=== PATIENT | female | born 1955 | race Caucasian/White ===

== ENCOUNTER 2016-11-01 14:30 | Inpatient (IN) | payer OTHER ==
[2016-11-05] MEDS ORDERED: ceFAZolin 2 GM/DEXTROSE 100 ML IV ONE (07:00)
[2016-11-05] MEDS ORDERED: LR 1,000 ML IV ONE (08:46)
[2016-11-05] MEDS ORDERED: BUPIVACAINE/EPI 0.25% 30 ML SDV ONE (08:53)
[2016-11-05] MEDS ORDERED: THROMBIN (RECOMBINANT) 5,000 UNIT VIAL TP ONE (08:54)
[2016-11-05] MEDS ORDERED: BACITRACIN 50,000 UNITS/10 ML SYR IRR ONE (08:54)
[2016-11-05] MEDS ORDERED: ROCURONIUM 50 MG/5 ML VIAL ONE (09:02)
[2016-11-05] MEDS ORDERED: PROPOFOL/EMULSION 500 MG/50 ML BOTTLE IV ONE (09:03)
[2016-11-05] MEDS ORDERED: PROPOFOL 200 MG/20 ML VIAL ONE (09:03)
[2016-11-05] MEDS ORDERED: REMIFENTANIL HCL 1 MG VIAL ONE (09:03)
[2016-11-05] MEDS ORDERED: fentaNYL 100 MCG/2 ML INJ ONE ×2 (09:03→12:48)
[2016-11-05] MEDS ORDERED: SUGAMMADEX SODIUM 200 MG/2 ML VIAL IVP ONE (09:09)
[2016-11-05] MEDS ORDERED: TEMAZEPAM 15 MG CAP PO PRN (09:37)
[2016-11-05] MEDS ORDERED: ACETAMINOPHEN 325 MG TAB PO PRN (09:37)
[2016-11-05] MEDS ORDERED: diphenhydrAMINE 25 MG CAP PO PRN (09:37)
[2016-11-05] MEDS ORDERED: DIAZEPAM 5 MG TAB PO PRN (09:37)
[2016-11-05] MEDS ORDERED: BISACODYL 10 MG SUPP PR PRN (09:37)
[2016-11-05] MEDS ORDERED: ONDANSETRON DISINTEGRATING 4 MG TAB PO PRN (09:37)
[2016-11-05] MEDS ORDERED: MAGNESIUM HYDROXIDE 30 ML UDCUP PO PRN (09:37)
[2016-11-05] MEDS ORDERED: NALOXONE HCL 0.4 MG/ML INJ IVP PRN (09:37)
[2016-11-05] MEDS ORDERED: DIAZEPAM 10 MG/2 ML SYR IVP PRN (09:37)
[2016-11-05] MEDS ORDERED: LACTULOSE 20 GM/30 ML UDCUP PO PRN (09:37)
[2016-11-05] MEDS ORDERED: ONDANSETRON 4 MG/2 ML VIAL IVP PRN (09:37)
[2016-11-05] MEDS ORDERED: morphINE PCA 30 MG/30 ML PCA IV PRN (09:37)
[2016-11-05] MEDS ORDERED: POLYETHYLENE GLYCOL 3350 17 GM PKT PO PRN (09:37)
[2016-11-05] MEDS ORDERED: PREGABALIN 75 MG CAP ONE (09:44)
[2016-11-05] MEDS ORDERED: PREGABALIN 150 MG CAP PO ONE (10:00)
[2016-11-05] MEDS ORDERED: MIDAZOLAM 2 MG/2 ML VIAL ONE (10:03)
[2016-11-05] MEDS ORDERED: DEXAMETHASONE 4 MG/ML VIAL ONE ×3 (10:49→10:50)
[2016-11-05] MEDS ORDERED: ONDANSETRON 4 MG/2 ML VIAL ONE (11:54)
--- NOTE | 2016-11-05 12:46 | SOAPPROG ---
SOAP Progress Note Assessment/Plan: Post Op Visit: S: Awake and alert. NAD. Pt with expected neck pain O: AFVSS/PERRLA/EOMI no droop CN 2-12 grossly intact +lt touch 5/5 BUE/BLE = CDI neck soft and supple A/P: 60 yo female s/p ACDF C5/6 -orders in place -call with any questions or concerns -pt seen by Dr Jo as well 11/05/16 12:44 ICD10 Worksheet Patient Problems: Problems Problem Status Diagnosed Arthrodesis status Acute Cervical stenosis of spine Acute Chest pain, minimal coronary artery risk Acute - ICD10 Problem Qualifiers (1) Arthrodesis status (2) Cervical stenosis of spine
[2016-11-05] MEDS ORDERED: DIAZEPAM 10 MG/2 ML SYR ONE (12:53)
[2016-11-05] MEDS ORDERED: HYDROmorphONE/DILAUDID 1 MG/ML SYR ONE (13:43)
--- NOTE | 2016-11-05 13:49 | GOP ---
[f rep st] OPERATIVE REPORT DATE OF OPERATION: 11/05/2016 SURGEON: Zeke Jo MD NEUROSURGEON: Zeke Jo MD VETERINARY RECEPTIONIST: Holden Amezcua PA-C PREOPERATIVE DIAGNOSIS: Cervical spondylosis with cervical stenosis and cervical radiculopathy, C5-6 . POSTOPERATIVE DIAGNOSIS: Cervical spondylosis with cervical stenosis and cervical radiculopathy, C5- 6. PROCEDURE PERFORMED: Anterior cervical diskectomy, decompression, and arthrodesis at C5-6 (51219), a nterior cervical instrumentation at C5-6 (37445), placement of biomechanical intervertebral device wi thout anchors at C5-6 (99352), microscope, same incision bone graft harvest, and fluoroscopy. FINDINGS: ESTIMATED BLOOD LOSS: 75 cc. INDICATIONS: The patient is a 60-year-old who appears to have some type of systemic inflammatory pro cess and was seen by multiple physicians for this. It was suggested that she go see a crawler tractor operator as well, but she presented with cervical radicular symptoms. MRI of the cervical spine demonstrated spondylosis at C5-6, with evidence of bilateral foraminal stenosis at 5-6. She had bilateral radicu lar symptoms, and we felt this was contributing to her discomfort and radiating symptoms down the arm s. We suggested a single-level anterior cervical diskectomy and fusion. She understood that it may fail to produce relief, but there was a chance that it would help with her discomfort. She also unde rstood there was the possibility of adjacent segment disease, pseudoarthrosis, nerve injury spinal fl uid leak, esophageal injury, carotid injury, recurrent laryngeal nerve injury, major vascular injury, and dysphasia. She appreciated these risks, and she wanted to proceed despite them. DESCRIPTION OF PROCEDURE: The patient was taken to the operating room and placed in the supine posit ion. General anesthesia was begun. A midline shoulder roll was placed. Her arms were tucked at the sides. Her neck was sterilely prepped and draped in the usual fashion. We made a transverse incisi on in the rostral neck crease on the left-hand side. The subcutaneous tissue was dissected using Bov ie cautery down through the platysma. We then used a combination of sharp and blunt dissection, work ing our way medial to the sternocleidomastoid and lateral to the strap muscles, down to the preverteb ral space. We shot a localizing x-ray. We dissected the longus colli muscles off the spine at C5-6, removed the ventral osteophytes at C5-6, and placed distraction pins there. We introduced the opera ting microscope and under the scope, we removed the C5-6 disk and the cartilaginous endplates. We th en drilled and harvested a large amount of subchondral bone for autologous grafting purposes, and the re was a large bony shelf of material protruding into the spinal canal posteriorly. We opened the po sterior longitudinal ligament, and decompressed the thecal sac and the neural foramen bilaterally. S he had large epidural veins over both C6 nerve roots, and we got great decompression, but there was s ignificant bleeding in the foramen itself. This was easily controlled with a little piece of Gelfoam . We shot an x-ray confirming removal of the posterior bony osteophytes, packed a 7 x 16 x 14 mm cag e with a large amount of bony autograft, and inserted it at C5-6. A nice fit was obtained. An x-ray was taken. The distraction pins were removed. We then placed an anterior cervical plate at C5-6. It was a 21 mm Medtronic plate and placed 15 mm screws. All screws were in excellent position. We t hen locked all of the hardware according to the company's specifications, achieved meticulous hemosta sis, and then placed some 0.25% Marcaine with epinephrine in the wound. We then closed the platysma with interrupted Vicryl sutures and the skin with interrupted Vicryl sutures. We placed Steri-Strips on the skin. This concluded the procedure. She was reversed from anesthesia, extubated, and transf erred to the recovery room in stable condition. COMPLICATIONS: None. INSTRUMENTATION USED: Medtronic ELITE plate, 21 mm, with an anatomic PTC cage, 7 x 14 x 16 mm. /[id number]/MODL
--- NOTE | 2016-11-05 15:27 | DX ---
Fluoroscopy Provided for Cervical Spine Surgery Indication: Neck pain. Fluoroscopy time: 11.5 seconds. Dose: 0.81 mGy. Technique: Single crosstable lateral view. Findings: Anterior fusion hardware is present at C5-C6. Patient is intubated. Impression: Fluoroscopy provided for intraoperative guidance.
[2016-11-05] MEDS: NS W/ 20 KCl/L 1,000 ML IV SCH (16:38)
[2016-11-05] MEDS: ceFAZolin 2 GM in D5W 100 ML IV SCH ×2 (16:38→21:23)
[2016-11-05] MEDS: oxyCODONE IR 5 MG TAB PO PRN (21:02)
[2016-11-05] MEDS: SENNOSIDES/DOCUSATE SODIUM TAB PO SCH (21:02)
[2016-11-05] MEDS: FAMOTIDINE 20 MG/NACL 50 ML IV SCH (21:03)
[2016-11-05] MEDS: METHOCARBAMOL 750 MG TAB PO PRN (21:03)
[2016-11-06] MEDS: oxyCODONE IR 5 MG TAB PO PRN ×3 (00:04→14:10)
[2016-11-06 07:28] VITALS: PULSE 65
[2016-11-06] MEDS: METHOCARBAMOL 750 MG TAB PO PRN ×2 (07:55→14:11)
[2016-11-06] MEDS: SENNOSIDES/DOCUSATE SODIUM TAB PO SCH (07:55)
[2016-11-06] MEDS: FAMOTIDINE 20 MG/NACL 50 ML IV SCH (07:56)
[2016-11-06] MEDS: NS W/ 20 KCl/L 1,000 ML IV SCH (08:18)
[2016-11-06] MEDS ORDERED: lamoTRIgine 100 MG TAB PO SCH (09:00)
--- NOTE | 2016-11-06 11:11 | NEUSURGPN ---
Date of Surgery: 11/05/16 Post Op Day: 1 Assessment/Plan: POD #1 s/p C5/6 ACDF right forearm pain improved Plan: DC Home after cervical xrays Subjective: out of bed in chair pain controlled, preop symptoms improved Objective: PEREZ, sens +LT, swallowing fine, ambulatory Dressing : Saturated, dressing changed. Urinary Catheter in Place: No Neurosurgery Physical Exam - Vitals, I&O, Labs I and O 11/05/16 11/06/16 11/07/16 05:59 05:59 05:59 Intake Total 4155 Output Total 4030 Balance 125 Intake: Oral (ml) 2100 IV Intake (ml) 1500 IV Infused (ml) 555 ceFAZolin 2 GM/DEXTROSE 100 100 ml @ 200 mls/hr IV ONCALL ONE Rx#:[id number] Famotidine 20 mg/NaCl 50 50 ml @ 200 mls/hr IV Q12HRS NEREYDA Rx#:[id number] NS W/ 20 KCl/L 1,000 ml @ 300 75 mls/hr IV CONT NEREYDA Rx #:[id number] ceFAZolin 2 gm In D5w 100 105 ml @ 200 mls/hr IV Q8 NEREYDA Rx#:[id number] Output: Urine (ml) 4000 Toilet 4000 Estimated Blood Loss (ml) 30 Other: Number of Voids Toilet 1 Vital Signs Temp Pulse Resp BP Pulse Ox 36.7 C 65 18 116/70 99 11/06/16 07:27 11/06/16 07:27 11/06/16 07:27 11/06/16 07:27 11/06/16 07:27 ICD10 Worksheet Patient Problems: Problems Problem Status Diagnosed Arthrodesis status Acute Cervical stenosis of spine Acute Chest pain, minimal coronary artery risk Acute
[2016-11-06 11:26] VITALS: BP 112/53; RESP 16; TEMP 98.4; O2SAT 95
--- NOTE | 2016-11-06 14:37 | DX ---
Cervical Spine, 2 Views Indication: Postoperative cervical fusion evaluation. Findings: Anterior fusion from C5-C6 demonstrates normal alignment. The prevertebral soft tissues are within normal limits given the new postoperative status. The rest of the cervical spine is normal in alignment. There is mild degenerative change at the C3-C4 junction. Lung apices are clear. Impression: Postoperative normal alignment post fusion at C5-C6.
[2016-11-08] MEDS ORDERED: ENOXAPARIN 40 MG/0.4 ML SYR SC SCH (09:00)
== END 2016-11-06 16:43 | disposition home or self-care (01) | DRG 473 ==
LOC: F3N 11-05 08:35
PROVIDERS: ADMIT Neurological Surgery; ATTEND Neurological Surgery
PROC: 0RB30ZZ Excision of Cervical Vertebral Disc, Open Approach (ICD-10-PCS; principal; 2016-11-05 10:00)
PROC: 01N10ZZ Release Cervical Nerve, Open Approach (ICD-10-PCS; principal; 2016-11-05 10:00)
PROC: 0RG00A0 Fusion of Occipital-cervical Joint with Interbody Fusion Device, Anterior Approach, Anterior Column, Open Approach (ICD-10-PCS; principal; 2016-11-05 10:00)
DX: M47.22 Other spondylosis with radiculopathy, cervical region (principal); M48.02 Spinal stenosis, cervical region
CPT/HCPCS: 92610-GN; 97161-GP; 97165-GO; 97535-GO; C1713; J0690; J1100; J1170; J2250; J2405; J2704; J3010

== ENCOUNTER → 2016-11-08 | Outpatient (CLI) | payer OTHER ==
--- NOTE | 2016-11-08 16:50 | DX ---
Cervical spine,2 views 11/08/2016 History: Follow-up cervical spine surgery. Comparison examination: November 06, 2016 Findings: Surgical features of diskectomy and interbody fusion at C5-C6 appear unchanged, with anatom ic alignment. Moderate intervertebral disk height loss at C4-C5 and mild disk height loss at C6-C7 are again noted compatible with degenerative disk disease. Impression: Stable cervical spine radiographs post diskectomy and fusion at C5-C6.
== END ==
LOC: FIMAGING 14:49
DX: Z09 Encounter for follow-up examination after completed treatment for conditions other than malignant neoplasm (principal); Z98.1 Arthrodesis status; M50.90 Cervical disc disorder, unspecified, unspecified cervical region

== ENCOUNTER → 2016-12-31 | Outpatient (CLI) | payer OTHER | LOC: FIMAGING 13:41 | PROVIDERS: ATTEND Physician Assistant | DX: Z98.1 Arthrodesis status (principal) ==

== ENCOUNTER → 2017-02-15 | Outpatient (CLI) | payer OTHER | LOC: CIMAGING 15:06 | PROVIDERS: ATTEND Internal Medicine Endocrinology, Diabetes & Metabolism | DX: E04.1 Nontoxic single thyroid nodule (principal) | CPT/HCPCS: 76536-PO ==

== ENCOUNTER → 2017-02-28 | Outpatient (CLI) | payer OTHER | LOC: BMCIMAGING 10:38 | PROVIDERS: ATTEND Internal Medicine Rheumatology | DX: Z13.820 Encounter for screening for osteoporosis (principal); M85.80 Other specified disorders of bone density and structure, unspecified site ==

== ENCOUNTER → 2017-03-23 | Outpatient (CLI) | payer OTHER | LOC: FIMAGING 16:36 | PROVIDERS: ATTEND Internal Medicine Rheumatology | DX: M85.841 Other specified disorders of bone density and structure, right hand (principal); M85.842 Other specified disorders of bone density and structure, left hand ==

== ENCOUNTER → 2017-04-28 | Outpatient (CLI) | payer OTHER | LOC: FIMAGING 17:38 | PROVIDERS: ATTEND Nurse Practitioner | DX: Z09 Encounter for follow-up examination after completed treatment for conditions other than malignant neoplasm (principal); Z98.1 Arthrodesis status ==

== ENCOUNTER → 2017-05-18 | Outpatient (CLI) | payer OTHER | LOC: FIMAGING 13:38 | PROVIDERS: ATTEND Obstetrics & Gynecology | DX: Z12.31 Encounter for screening mammogram for malignant neoplasm of breast (principal) | CPT/HCPCS: G0202 ==

== ENCOUNTER → 2017-08-16 | Outpatient (CLI) | payer OTHER | LOC: FIMAGING 11:01 → FLAB 11:01 → EDSTATUS 11:02 | PROVIDERS: ATTEND Podiatrist | DX: M21.70 Unequal limb length (acquired), unspecified site (principal) ==

== ENCOUNTER → 2017-10-13 | Outpatient (CLI) | payer OTHER | LOC: FIMAGING 15:45 | PROVIDERS: ATTEND Neurological Surgery | DX: M50.321 Other cervical disc degeneration at C4-C5 level (principal) ==

== ENCOUNTER → 2017-10-28 | Outpatient (CLI) | payer OTHER | LOC: FIMAGING 13:38 | PROVIDERS: ATTEND Neurological Surgery | DX: Z98.1 Arthrodesis status (principal) ==

== ENCOUNTER → 2018-02-04 | Outpatient (CLI) | payer OTHER | LOC: FIMAGING 14:13 | PROVIDERS: ATTEND Internal Medicine Rheumatology | DX: M05.79 Rheumatoid arthritis with rheumatoid factor of multiple sites without organ or systems involvement (principal) ==

== ENCOUNTER → 2018-04-21 | Outpatient (CLI) | payer OTHER | LOC: FIMAGING 13:08 | PROVIDERS: ATTEND Obstetrics & Gynecology | DX: I99.9 Unspecified disorder of circulatory system (principal); D25.9 Leiomyoma of uterus, unspecified; Z80.41 Family history of malignant neoplasm of ovary ==

== ENCOUNTER → 2018-05-19 | Outpatient (CLI) | payer OTHER | LOC: FIMAGING 12:39 | PROVIDERS: ATTEND Internal Medicine | DX: Z12.31 Encounter for screening mammogram for malignant neoplasm of breast (principal) ==

== ENCOUNTER 2018-09-20 11:50 | Emergency (ER) | payer OTHER ==
--- NOTE | 2018-09-20 12:32 | EDPHY ---
H & P Stated Complaint: c/o intermittent yeung behind R eye since 12.1, since having vision variations Time Seen by Provider: 09/20/18 12:31 - Medical/Surgical History Hx Asthma: No Hx Chronic Respiratory Disease: No Hx Diabetes: No Hx Cardiac Disease: No Hx Renal Disease: No Hx Cirrhosis: No Hx Alcoholism: No Hx HIV/AIDS: No Hx Splenectomy or Spleen Trauma: No Other PMH: PMH: "mild variant of mitral click", RA, depression,. PSH: shoulder surgery 2005, varicose vein (right leg 01/13, left leg 01/20), uterine polyp removed - Social History Smoking Status: Never smoked Constitutional: Initial Vital Signs Temperature (C) 36.7 C 09/20/18 12:05 Heart Rate 91 09/20/18 12:05 Respiratory Rate 18 09/20/18 12:05 Blood Pressure 115/85 H 09/20/18 12:05 O2 Sat (%) 100 09/20/18 12:05 O2 Delivery Mode Room Air Allergies/Adverse Reactions: Latex, Natural Rubber Allergy (Intermediate, Verified 09/20/18 12:16) Hives POWDERED LATEX GLOVES Allergy (Intermediate, Uncoded 02/26/15 17:11) Hives Home Medications: Medication Instructions Recorded Cholecalciferol (Vitamin D3) 2,000 unit PO DAILY 02/01/16 [Vitamin D3] lamoTRIgine [LamICTAL 100 MG (*)] 200 mg PO DAILY 02/01/16 Methocarbamol [Robaxin 750 mg (*)] 750 mg PO QID PRN #60 tab 11/06/16 Polyethylene Glycol 3350 [Miralax 17 gm PO DAILY PRN #0 pkt 11/06/16 17 gm (*)] oxyCODONE IR [Oxycodone Ir (*)] 5 mg PO Q3HRS PRN #90 tab 11/06/16 Medical Decision Making - Diagnostics Imaging Results: Imaging Impressions Brain MRI 09/20/18 12:48 Impression: 1. A few nonspecific hyperintense T2/FLAIR signal abnormalities in the white matter of bilateral cerebral hemispheres. Differential diagnosis includes mild microvascular ischemic gliosis, migraine-related sequela, atypical demyelinating disease, or postinfectious/post inflammatory sequela. 2. No acute infarct, acute hemorrhage, hydrocephalus, or enhancing lesions. Findings and recommendations discussed with Emergency Department physician, Brady Hernández MD at 14:45 hours, 09/20/2018. Final report concurs with initial preliminary interpretation. Imaging: Discussed imaging studies w/ inbound call center representative Radiologist, I viewed and interpreted images myself ED Course/Re-evaluation: CHIEF COMPLAINT: Right-sided headache, vision problems HISTORY OF PRESENT ILLNESS: The patient is a 62 y/o female with a history of rheumatoid arthritis complaining of a right-sided headache surrounding her eye for several weeks worsening over the last week and now associated with right eye vision changes. She developed a sinus infection at the end of July and was initially treated conservatively with OTC medications and developed significant drainage from the right side of her nose. Over the holiday she flew to visit family and this seemed to aggravate her symptoms. She went to urgent care and was treated for presumed sinus infection and conjunctivitis with a course of Augmentin. Symptoms worsened over the next two days and she returned to urgent care and was switched to Ocuflox drops. She had normal vision at this point and denies weakness, paresthesias, or fever at any point. She returned home and developed decrease in vision in her right eye. She saw her load dispatcher , PCP, and financial operations clerk locally and intrinsic eye issues were ruled out and she was advised to stop the antibiotics. She currently has constant pain from the right side of her forehead and check around the right side of her head and down her neck. She is having difficulty seeing normally out of her right eye. REVIEW OF SYSTEMS: A comprehensive 10 system review of systems is otherwise negative aside from elements mentioned in the history of present illness and medical decision making. PHYSICAL EXAM: HR, BP, O2 Sat, RR. Temp noted General Appearance: Alert, well hydrated, appropriate, and non-toxic appearing. Head: Atraumatic without scalp tenderness or obvious injury Eyes: Pupils equal, round, reactive to light and accommodation, EOMI, no trauma , no injection. Ears: Clear bilaterally, no perforation, normal landmarks Nose: Atraumatic, no rhinorrhea, clear. Throat: Mucus membranes moist. Neck: Supple, nontender, no lymphadenopathy. Respiratory: No retractions, no distress, no wheezes, and no accessory muscle use. Lungs are clear to auscultation bilaterally. Cardiovascular: Regular rate and rhythm, no murmurs, rubs, or gallops.Good capillary refill all extremities. Gastrointestinal: Abdomen is soft, nontender, non-distended, no masses, no rebound, no guarding, no peritoneal signs. Musculoskeletal: Normal active ROM of all extremities, atraumatic. Neurological: Alert, appropriate, and interactive. The patient has non-focal cranial nerves, motor, sensory, and cerebellar exam. Skin: No rashes, good turgor, no nodules on palpation. Past medical history: "mild variant of mitral click", RA - Enbrel (currently off this in preparation for hysterectomy in ), depression. Past surgical history: shoulder surgery 2005, varicose vein (right leg 01/13, left leg 01/20), uterine polyp removed, neck fusion Family history: noncontributory Social history: at bedside. Lives in [place]. Retired. DIAGNOSTICS/PROCEDURES/CRITICAL CARE TIME: Brain MRI: negative DIFFERENTIAL DIAGNOSIS: The differential diagnosis for the patient's vision issues included but was not limited to peripheral causes, central causes including CVA, TIA, electrolyte abnormalities and dehydration, cardiogenic causes, atypical causes like migraine syndrome. MEDICAL DECISION MAKING: This is a 62 y/o female with rheumatoid arthritis who presents with a nearly 1- month history of right-sided facial pain and headache who more recently developed difficulty seeing out of her right eye. She's undergone several outpatient examinations and intrinsic eye issues have been ruled out by ophthalmology and optometry. Apart from decreased vision in right eye, neuro exam is nonfocal. Plan for IV, ISTAT, and brain MRI for evaluation of intracranial causes. Brain MRI is negative. Reassessed patient and discussed findings. Recommended follow up with neurologist in the next week. She is comfortable with this plan. Return precautions discussed. She is comfortable with this plan. - Data Points Laboratory Results: 09/20/18 13:03 POC Hgb 16.0 gm/dL gm/dL (12.6-16.3) POC Hct 47 % % (38-47) POC Sodium 142 mEq/L mEq/L (135-145) POC Potassium 3.6 mEq/L mEq/L (3.3-5.0) POC Chloride 101 mEq/L mEq/L (97-110) POC BUN 10 mg/dL mg/dL (7-23) POC Creatinine 0.7 mg/dL mg/dL (0.6-1.0) POC Glucose 94 mg/dL mg/dL (70-100) Point of Care Test Results: Chemistry 09/20/18 13:03 POC Sodium 142 mEq/L mEq/L (135-145) POC Potassium 3.6 mEq/L mEq/L (3.3-5.0) POC Chloride 101 mEq/L mEq/L (97-110) POC BUN 10 mg/dL mg/dL (7-23) POC Creatinine 0.7 mg/dL mg/dL (0.6-1.0) POC Glucose 94 mg/dL mg/dL (70-100) ISTAT H&H 09/20/18 13:03 POC Hgb 16.0 gm/dL gm/dL (12.6-16.3) POC Hct 47 % % (38-47) Departure - Departure Disposition: Home, Routine, Self-Care Clinical Impression: Vision changes Headache Qualifiers: Headache type: unspecified Headache chronicity pattern: unspecified pattern Intractability: not intractable Qualified Code(s): R51 - Headache Condition: Good Instructions: General Headache (ED), Blurred Vision (ED) Additional Instructions: Follow up with neurologist in the next week. I recommend calling today to schedule this appointment. Return to the ED for any worsening of condition. Referrals: Latasha Velasco MD [Primary Care Provider] - As per Instructions Zak Crabtree DO [Doctor of Osteopathy] - As per Instructions Report Scribed for: Brady Hernández Report Scribed by: Blanca Sauer Date of Report: 09/20/18 Time of Report: 12:50
[2018-09-20] MEDS ORDERED: GADOBUTROL 10 ML VIAL IVP ONE (13:51)
[2018-09-20 15:48] VITALS: BP 150/86
== END 2018-09-20 15:48 | disposition home or self-care (01) ==
DX: H53.8 Other visual disturbances (principal); R51 Headache; M06.9 Rheumatoid arthritis, unspecified
CPT/HCPCS: 82435-PO; 82565-PO; 82947-PO; 84132-PO; 84295-PO; 84520-PO; 85014-PO; A9585

== ENCOUNTER 2018-10-11 07:15 | Observation (INO) | payer OTHER ==
[2018-10-11] MEDS ORDERED: LIDOCAINE 2% 5 ML SDV ONE (08:36)
[2018-10-11] MEDS ORDERED: PROPOFOL 200 MG/20 ML VIAL ONE (08:36)
[2018-10-11] MEDS ORDERED: SUGAMMADEX SODIUM 200 MG/2 ML VIAL IVP ONE (08:36)
[2018-10-11] MEDS ORDERED: ONDANSETRON 4 MG/2 ML VIAL ONE (08:36)
[2018-10-11] MEDS ORDERED: fentaNYL 250 MCG/5 ML INJ ONE (08:36)
[2018-10-11] MEDS ORDERED: DEXAMETHASONE 4 MG/ML VIAL ONE (08:36)
[2018-10-11] MEDS ORDERED: ROCURONIUM 100 MG/10 ML VIAL ONE (08:36)
[2018-10-11] MEDS ORDERED: GABAPENTIN 300 MG CAP PO ONE (09:35)
[2018-10-11] MEDS ORDERED: ACETAMINOPHEN 500 MG TAB PO ONE (09:35)
[2018-10-11] MEDS ORDERED: LIDOCAINE 1% 2 ML INJ ID PRN (09:35)
[2018-10-11] MEDS ORDERED: LR 1,000 ML IV ONE (09:35)
[2018-10-11] MEDS ORDERED: ceFAZolin 2 GM/DEXTROSE 100 ML IV ONE (09:35)
[2018-10-11] MEDS ORDERED: PHENAZOPYRIDINE HCL 200 MG TAB PO ONE (09:35)
[2018-10-11] MEDS ORDERED: LR 500 ML IV PRN (09:37)
[2018-10-11] MEDS ORDERED: oxyCODONE IR 5 MG TAB PO PRN (09:37)
[2018-10-11] MEDS ORDERED: ONDANSETRON 4 MG/2 ML VIAL IVP PRN (09:37)
[2018-10-11] MEDS ORDERED: PROMETHAZINE HCL 25 MG/ML INJ IVP PRN ×2 (09:37→14:03)
[2018-10-11] MEDS ORDERED: fentaNYL 100 MCG/2 ML INJ IVP PRN (09:37)
[2018-10-11] MEDS ORDERED: PHENYLEPHRINE HCL 100 MCG/ML SYR IVP PRN (09:37)
[2018-10-11] MEDS ORDERED: METOCLOPRAMIDE 10 MG/2 ML VIAL IVP PRN (09:37)
[2018-10-11] MEDS ORDERED: MEPERIDINE 25 MG/0.5 ML AMP IVP PRN (09:37)
[2018-10-11] MEDS ORDERED: NALOXONE HCL 0.4 MG/ML INJ IVP PRN (09:37)
[2018-10-11] MEDS ORDERED: MIDAZOLAM 2 MG/2 ML VIAL IVP ONE (09:37)
[2018-10-11] MEDS ORDERED: BUPIVACAINE/EPI 0.5% 30 ML SDV ONE ×2 (10:04→11:09)
--- NOTE | 2018-10-11 10:24 | PDHPUP ---
History & Physical Update H&P update statement: This history and physical update is based on an assessment of the patient which was completed after admission or registration (within 24 hours), but prior to the surgery/procedure. H&P update: H&P reviewed & patient examined, no change in patient's condition since H&P completed
--- NOTE | 2018-10-11 10:40 | PDANEPAE ---
ANE Past Medical History - Cardiovascular History Hx Hypertension: No Hx Arrhythmias: No Hx Chest Pain: No Hx Coronary Artery / Peripheral Vascular Disease: No Hx CHF / Valvular Disease: No Hx Palpitations: No Cardiovascular History Comment: mild variant of mitral click- cardiac work up - Pulmonary History Hx COPD: No Hx Asthma/Reactive Airway Disease: No Hx Recent Upper Respiratory Infection: Yes Hx Oxygen in Use at Home: No Hx Sleep Apnea: No Sleep Apnea Screening Result - Last Documented: Negative Pulmonary History Comment: SINUS INFECTION 08/2018. ENVIRONMENTAL ALLERGIES - Neurologic History Hx Cerebrovascular Accident: No Hx Seizures: No Hx Dementia: No Neurologic History Comment: lower legs are achy. nerve pain - Endocrine History Hx Diabetes: No Endocrine History Comment: THYROID goiter - Renal History Hx Renal Disorders: Yes Renal History Comment: INCONT - Liver History Hx Hepatic Disorders: No - Neurological & Psychiatric Hx Hx Neurological and Psychiatric Disorders: Yes Neurological / Psychiatric History Comment: depression. anxiety - Cancer History Hx Cancer: No Cancer History Comment: cervical dysplagia - Congenital Disorder History Hx Congenital Disorders: No - GI History Hx Gastrointestinal Disorders: Yes Gastrointestinal History Comment: INTERMITTENT REFLUX USES ROLAIDS - Other Health History Other Health History: UTERINE PROLAPSE. LABRAL TEAR HIP RECENT PLATELET. INJECTION 09/07/18. DDD/RECENT LUMBAR KEITH. wears glasses and contacts - Chronic Pain History Chronic Pain: Yes (neck, back, chest, bilateral hands) - Surgical History Prior Surgeries: ACDF 10/2016. hysterectomy, d&c 02/2015. cervix cone bx '85. l shoulder '06 ANE Review of Systems Review of Systems: - Exercise capacity METS (RN): 4 METS ANE Patient History - Allergies Allergies/Adverse Reactions: Latex, Natural Rubber Allergy (Intermediate, Verified 09/20/18 12:16) Hives POWDERED LATEX GLOVES Allergy (Intermediate, Uncoded 02/26/15 17:11) Hives - Home Medications Home Medications: Cholecalciferol (Vitamin D3) [Vitamin D3] 2,000 unit PO DAILY 02/01/16 [Last Taken 10/04/18] lamoTRIgine [LamICTAL 100 MG (*)] 200 mg PO DAILY 02/01/16 [Last Taken 10/11/18] Acetaminophen [Tylenol ES 500 mg (*)] 500 mg PO Q6H PRN 09/22/18 [Last Taken 11/14] Etanercept [Enbrel] 50 mg SQ FR 09/22/18 [Last Taken 09/01/18] Fexofenadine HCl [Lloy Allergy] 180 mg PO DAILY PRN 09/22/18 [Last Taken 11/14] Folic Acid [Folic Acid 1 MG (*)] 2 mg PO DAILY 09/22/18 [Last Taken 10/11/18] Herbals/Supplements -Info Only 1 ea PO DAILY 09/22/18 [Last Taken 10/04/18] Methotrexate Sodium [Rheumatrex] 15 mg PO WE 09/22/18 [Last Taken 10/04/18] - NPO status NPO Since - Liquids (Date): 10/10/18 NPO Since - Liquids (Time): 23:45 NPO Since - Solids (Date): 10/10/18 NPO Since - Solids (Time): 23:45 - Smoking Hx Smoking Status: Never smoked - Family Anes Hx Family Hx Anesthesia Complications: none ANE Labs/Vital Signs - Vital Signs Blood Pressure: 134/74 Heart Rate: 67 Respiratory Rate: 13 O2 Sat (%): 96 Height: 170.18 cm Weight: 73.482 kg ANE Physical Exam - Airway Neck exam: FROM Mallampati Score: Class 1 Mouth exam: normal dental/mouth exam - Pulmonary Pulmonary: no respiratory distress, no rales or rhonchi, clear to auscultation - Cardiovascular Cardiovascular: regular rate and rhythym - ASA Status ASA Status: II ANE Anesthesia Plan Anesthesia Plan: general endotracheal anesthesia
[2018-10-11] MEDS ORDERED: KETOROLAC 30 MG/1 ML SDV ONE (11:03)
[2018-10-11] MEDS ORDERED: ROCURONIUM 50 MG/5 ML VIAL ONE ×2 (12:40→12:44)
--- NOTE | 2018-10-11 12:54 | POSTANESTH ---
Post Anesthetic Evaluation Cardiovascular Status: Normal, Stable Respiratory Status: Normal, Stable Level of Consciousness/Mental Status: Can Participate in Eval Pain Control: Adequate, Prn Tx Ordered Nausea/Vomiting Control: Adequate, Prn Tx Ordered Complications Possibly Related to Anesthesia: None Noted
[2018-10-11] MEDS ORDERED: ePHEDrine SULFATE 25 MG/5 ML SYR ONE (13:35)
[2018-10-11] MEDS ORDERED: ACETAMINOPHEN 500 MG TAB PO PRN (14:02)
[2018-10-11] MEDS ORDERED: POLYETHYLENE GLYCOL 3350 17 GM PKT PO PRN (14:02)
[2018-10-11] MEDS ORDERED: ONDANSETRON DISINTEGRATING 4 MG TAB PO PRN (14:04)
--- NOTE | 2018-10-11 14:09 | POSTOPPROG ---
Post Op Note Date of Operation: 10/11/18 Surgeon: Sekou Jo Plastic Maker: Ursula Martinez Anesthesia: GET(General Endotracheal) Pre-op Diagnosis: Uterovaginal prolapse, stress incontinence Post-op Diagnosis: same Procedure: Robotic hyst/BSO, sacrocolpopexy, TOT sling, cysto Findings: No bladder or urethral injury Inf/Abcess present in the surg proc area at time of surgery?: No EBL: Minimal Complications: None
[2018-10-11] MEDS ORDERED: METHOTREXATE 2.5 MG TAB PO SCH (14:15)
[2018-10-11] MEDS ORDERED: LR 1,000 ML IV SCH (14:30)
[2018-10-11] MEDS ORDERED: DIAZEPAM 5 MG/ML 1 ML SYR ONE ×2 (14:30→15:54)
[2018-10-11] MEDS ORDERED: DIAZEPAM 5 MG/ML 1 ML SYR IVP PRN (14:38)
[2018-10-11] MEDS ORDERED: HYDROmorphONE/DILAUDID 2 MG/ML INJ ONE ×2 (15:07→15:54)
[2018-10-11] MEDS: HYDROmorphONE/DILAUDID 1 MG/ML INJ IVP PRN ×4 (15:09→22:42)
[2018-10-11] MEDS: HYDROmorphONE/DILAUDID 2 MG/ML INJ IVP PRN ×5 (15:15→15:50)
[2018-10-11] MEDS ORDERED: HYDROmorphONE/DILAUDID 1 MG/ML INJ IVP PRN (15:27)
[2018-10-11] MEDS ORDERED: HYDROmorphONE/DILAUDID 1 MG/ML INJ IVP ONE (16:00)
[2018-10-11] MEDS ORDERED: DIAZEPAM 5 MG/ML 1 ML SYR IVP ONE (16:00)
[2018-10-11] MEDS: GABAPENTIN 300 MG CAP PO SCH ×2 (17:51→23:26)
[2018-10-11] MEDS: ONDANSETRON 4 MG/2 ML VIAL IVP PRN ×2 (18:14→22:42)
--- NOTE | 2018-10-11 18:35 | GOP ---
DATE OF OPERATION: 10/11/2018 SURGEON: Sekou Jo MD SIEBEL ADMINISTRATOR: Ursula Martinez CFA. ANESTHESIA: General. PREOPERATIVE DIAGNOSIS: 1. Cystocele. 2. Uterine prolapse. 3. Rectocele. 4. Stress urinary incontinence. 5. History of cervical dysplasia. POSTOPERATIVE DIAGNOSIS: 1. Cystocele. 2. Uterine prolapse. 3. Rectocele. 4. Stress urinary incontinence. 5. History of cervical dysplasia. PROCEDURE PERFORMED: 1. Robotic-assisted total laparoscopic hysterectomy, bilateral salpingo-oophorectomy. 2. Sacral colpopexy with mesh. 3. Repair of cystocele and rectocele. 4. Transobturator sling. 5. Cystoscopy. FINDINGS: SPECIMENS: Uterus, bilateral tubes, and ovaries. ESTIMATED BLOOD LOSS: Scant. DESCRIPTION OF PROCEDURE: The patient was taken to the operating room where she was identified. Gen eral anesthesia was administered and found to be adequate. She was placed in the lithotomy position and prepared and draped in normal sterile fashion. A Willett catheter was placed in her bladder. A VC are uterine manipulator was placed into the endometrial cavity and sutured to the cervix. A 1 cm infraumbilical incision was made with a scalpel. The Veress needle with the CO2 gas line was advanced into the peritoneal cavity. The abdomen was then insufflated with carbon dioxide gas. The 12 mm trocar followed by the laparoscope were then inserted. The upper abdomen was unremarkable. Tw o lateral ports were placed on either side under direct visualization. She then was placed in T[place] len[place] position and the da Sindi robot docked on the left side. The instruments were then brought i nto the abdominal cavity under direct visualization. The uterus, tubes and ovaries were grossly unre markable. The left round ligament was divided. The anterior leaf of the broad ligament was incised to the bifurcation of left common iliac vessels. A window was created in the posterior leaf anterior to the ureter to skeletonize the infundibulopelvic vessels. They were then cauterized and transecte d. The anterior leaf of the broad ligament was then incised over the left uterine vessels and across the cervix. The bladder was gently dissected off the cervix and upper vagina. The left uterine vas culature was then cauterized and transected. The exact same procedure was performed on the patient's right side. A circumferential colpotomy incision was then made with the hot philomena. The specimen r emoved through the vagina. The vaginal cuff was then closed with a running suture of 0 V-Loc 180 in 2 layers. The vaginal stent was then placed. The bladder was further dissected off the anterior vag inal wall down to the level of bladder neck. The rectovaginal space was then entered and the rectum dissected off the posterior vaginal wall down to the level of the perineal body. Measurements were t hen obtained and the mesh trimmed to size. The sigmoid colon was then retracted laterally. The peritoneum over the sacral promontory and the fa t pad gently dissected off the anterior longitudinal ligament. The mesh was brought into the abdomin al cavity. Three sutures of 4-0 Tolley-Arturo were used to attach the distal posterior mesh to the perine al body. Two additional rows of Tolley-Arturo sutures were placed posteriorly. Three rows were placed an teriorly to suture the anterior mesh down to the level of the bladder neck and laterally to the parav aginal tissue. The stent was then removed. The sacral arm of the mesh was placed over the promontor y and the tension adjusted. I then scrubbed back into the case to examine the vagina. The tension w as further adjusted to resolve the cystocele and rectocele without undue tension on the vagina. Two sutures of 2-0 Tolley-Arturo were used to attach the sacral arm of the mesh to the anterior longitudinal l igament at the level of the upper 1st sacral vertebral body. The excess mesh was then trimmed. The peritoneum was then closed over the entire mesh. The robot was then undocked. The fascia closed wit h 0 Vicryl, skin with 4-0 Monocryl. A mid urethral incision was then made with a scalpel. Tunnels were created bilaterally up to the obt urator internus muscles. Skin incisions were made over the obturator notches. The Halo trocar was p laced through the left skin incision, redirected around the ischial pubic rami and out through the va ginal incision using a vaginal finger as a guide. The lateral sulci were examined and no evidence of vaginal injury had occurred. The sling was then attached and brought out along the same course. Th exact same procedure was performed on the patient's right side. The sling was then adjusted to all ow a small mid urethral gap. The vaginal epithelium was closed with 2-0 Vicryl. The skin with 4-0 M onocryl. Cystoscopy was then performed. Both ureters had vigorous jets of urine. There was no evidence of bl adder nor urethral injury seen. There was no mesh nor suture seen within the bladder nor urethra. N o obvious pathology was seen. A transverse incision was then made along the perineal body. The posterior vaginal epithelium was un dermined with the Metzenbaum scissors and incised sagittally. The epithelium was gently dissected of f the underlying rectovaginal connective tissue. The connective tissue was plicated in the midline w ith 0 Vicryl suture. The excess epithelium was then trimmed. The bulbous spongiosis, transverse per ineal muscles were plicated in the midline. The epithelium was then closed with a running 2-0 Vicryl suture. Vaginal packing was then placed. Anesthesia was reversed. The patient taken to the PACU a wake, in stable condition. COMPLICATIONS: None. DISPOSITION: Patient stable to PACU. /[id number]/MODL
[2018-10-11] MEDS: KETOROLAC 30 MG/1 ML SDV IVP SCH (20:37)
[2018-10-12] MEDS: HYDROmorphONE/DILAUDID 1 MG/ML INJ IVP PRN ×3 (01:00→05:14)
[2018-10-12] MEDS: KETOROLAC 30 MG/1 ML SDV IVP SCH ×2 (02:11→08:17)
[2018-10-12] MEDS: SIMETHICONE 80 MG TAB CHEW PO SCH ×4 (02:34→10:31)
[2018-10-12 07:05] LABS: PLATELET COUNT 128 10^3/uL (150-400)
[2018-10-12] MEDS: HYDROmorphONE/DILAUDID 2 MG TAB PO PRN ×2 (08:20→14:34)
[2018-10-12] MEDS ORDERED: FOLIC ACID 1 MG TAB PO SCH (09:00)
[2018-10-12] MEDS ORDERED: lamoTRIgine 100 MG TAB PO SCH (09:00)
[2018-10-12 09:35] VITALS: BP 88/58
--- NOTE | 2018-10-12 10:01 | SOAPPROG ---
SOAP Progress Note Assessment/Plan: Assessment: Doing well. Discussed morphine issue yesterday. Plan: 10/12/18 09:59 Discharge home Instructions and surgery reviewed. Office in 2 weeks. Subjective: Pain controlled since PACU. Ambulating, voiding, tolerating gen diet. Objective: Vital Signs Temp Pulse Resp BP Pulse Ox 36.9 C 91 17 88/58 L 93 10/12/18 08:00 10/12/18 08:00 10/12/18 08:00 10/12/18 08:00 10/12/18 08:00 Laboratory Results 10/12/18 06:30 10/11/18 10/12/18 10/13/18 05:59 05:59 05:59 Intake Total 3831 Output Total 1320 150 Balance 2511 -150 - Pending Discharge Pending Discharge Within 24 Hours: Yes Pending Discharge Date: 10/13/18 Pending Discharge Time: 11:00 Physical Exam - Physical Exam General Appearance: WD/WN, alert, no apparent distress Abdomen: normal bowel sounds, soft (Incisions clean, dry, and intact.) ICD10 Worksheet Patient Problems: Problems Problem Status Onset Cystocele, lateral Acute Arthrodesis status Acute Cervical stenosis of spine Acute Chest pain, minimal coronary artery risk Acute - ICD10 Problem Qualifiers (1) Cystocele, lateral
[2018-10-12] MEDS: GABAPENTIN 300 MG CAP PO SCH (10:31)
--- NOTE | 2018-10-12 11:01 | GDS ---
DISCHARGE DIAGNOSES: 1. Cystocele. 2. Rectocele. 3. Uterine prolapse. 4. Stress urinary incontinence. PROCEDURES: 1. Robotic-assisted total laparoscopic hysterectomy, bilateral salpingo-oophorectomy. 2. Sacral colpopexy with mesh. 3. Repair of cystocele and rectocele. 4. Transobturator sling. 5. Cystoscopy. HISTORY AND HOSPITAL COURSE: The patient suffered from symptomatic uterovaginal prolapse and stress incontinence. She was taken to the operating room on 10/11/2018 where she underwent reconstructive s urgery which she tolerated well. Postoperatively, her course was relatively uneventful. 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 She received 1 dose in the PACU. How ever, she also received multiple doses of Dilaudid, Toradol, and Valium which then eventually control led her pain. On the floor, she remained on Dilaudid and Toradol and later switched to oral Dilaudid . On postoperative day #1, she was ambulating, voiding, and tolerating a general diet. She was disc harged home on postoperative day #1 in good condition. Medications included Toradol and Dilaudid for pain. She then was to switch to Aleve once she completed her Toradol course. She was also given a prescription for Zofran for any nausea. She was to follow up in my office 2 weeks after discharge or call for any concerns or questions prior to that. /[id number]/MODL
[2018-10-12] MEDS ORDERED: KETOROLAC 30 MG/1 ML SDV IVP SCH ×2 (14:30→18:00)
== END 2018-10-12 15:30 | disposition home or self-care (01) ==
LOC: F3N 08:43 → F3E 10:11 → FOB 17:30
PROVIDERS: ADMIT Obstetrics & Gynecology; ATTEND Obstetrics & Gynecology
PROC: 0UT94ZZ Resection of Uterus, Percutaneous Endoscopic Approach (ICD-10-PCS; principal; 2018-10-11 10:30)
PROC: 0UT74ZZ Resection of Bilateral Fallopian Tubes, Percutaneous Endoscopic Approach (ICD-10-PCS; principal; 2018-10-11 10:30)
PROC: 0UT24ZZ Resection of Bilateral Ovaries, Percutaneous Endoscopic Approach (ICD-10-PCS; principal; 2018-10-11 10:30)
PROC: 8E0W4CZ Robotic Assisted Procedure of Trunk Region, Percutaneous Endoscopic Approach (ICD-10-PCS; principal; 2018-10-11 10:30)
DX: N81.4 Uterovaginal prolapse, unspecified (principal); N39.3 Stress incontinence (female) (male)
CPT/HCPCS: 58571; G0378; C1763; C1771; J0690; J1100; J1170; J1885; J2250; J2270; J2405; J2704; J3010; J3360

== ENCOUNTER 2018-12-12 00:37 | Emergency (ER) | payer OTHER ==
--- NOTE | 2018-12-12 01:18 | EDPHY ---
H & P Stated Complaint: FEVER, CONGESTION,COUGH Time Seen by Provider: 12/12/18 00:46 HPI/ROS: HPI The patient presents with 1 day of productive cough with phlegm and fever at home. Symptoms began while sleeping, she awoke at 5:00 a.m. And had to gasp for air because of a cough which was productive of sputum. She noticed tonight that she had a fever in took a dose of Aleve. She has also been taking Mucinex. She has a mild runny nose and sore throat. She has recently been traveling, returned from [place] where she was visiting family. She is concerned about her medications and drug interactions.. REVIEW OF SYSTEMS 10 systems were reviewed and negative with the exception of the elements mentioned in the history of present illness. PMHx: Rheumatoid arthritis, depression Soc Hx: Housed, here with her PHYSICAL General Appearance: Alert, no distress Eyes: Pupils equal and round no pallor or injection ENT, Mouth: Mucous membranes moist Respiratory: There are no retractions, lungs are clear to auscultation Cardiovascular: Regular rate and rhythm Gastrointestinal: Abdomen is soft and non-tender, no masses, bowel sounds normal Neurological: A&O, moves all extremities Skin: Warm and dry, no rashes Musculoskeletal: Neck is supple non tender Extremities: symmetrical, full range of motion Psychiatric: Patient is oriented X 3, there is no agitation Source: Patient Exam Limitations: No limitations - Personal History Current Tetanus/Diphtheria Vaccine: Yes Current Tetanus Diphtheria and Acellular Pertussis (TDAP): Yes - Medical/Surgical History Hx Asthma: No Hx Chronic Respiratory Disease: No Hx Diabetes: No Hx Cardiac Disease: No Hx Renal Disease: No Hx Cirrhosis: No Hx Alcoholism: No Hx HIV/AIDS: No Hx Splenectomy or Spleen Trauma: No Other PMH: PMH: "mild variant of mitral click", RA, depression,. PSH: shoulder surgery 2005, varicose vein (right leg 01/13, left leg 01/20), uterine polyp removed - Social History Smoking Status: Never smoked Constitutional: Initial Vital Signs Temperature (C) 37.9 C 12/12/18 00:41 Heart Rate 94 12/12/18 00:41 Respiratory Rate 18 12/12/18 00:41 Blood Pressure 157/92 H 12/12/18 00:41 O2 Sat (%) 93 12/12/18 00:41 O2 Delivery Mode Room Air Allergies/Adverse Reactions: Latex, Natural Rubber Allergy (Intermediate, Verified 12/12/18 00:44) Other-Enter Comments morphine Allergy (Verified 12/12/18 00:44) See Comments on Alternatives for Pain POWDERED LATEX GLOVES Allergy (Intermediate, Uncoded 12/12/18 00:44) Hives Home Medications: Medication Instructions Recorded Cholecalciferol (Vitamin D3) 2,000 unit PO DAILY 02/01/16 [Vitamin D3] lamoTRIgine [LamICTAL 100 MG (*)] 200 mg PO DAILY 02/01/16 Etanercept [Enbrel] 50 mg SQ FR 09/22/18 Folic Acid [Folic Acid 1 MG (*)] 2 mg PO DAILY 09/22/18 Herbals/Supplements -Info Only 1 ea PO DAILY 09/22/18 Methotrexate Sodium [Rheumatrex] 15 mg PO WE 09/22/18 Asenapine Maleate [Saphris] 12/12/18 Oseltamivir Phosphate [Tamiflu 75 75 mg PO BID 5 Days cap 12/12/18 mg (*)] Medical Decision Making - Diagnostics Imaging Results: Chest x-ray two view shows no infiltrate, no cardiomegaly, no effusion, interpreted by me, radiology interpretation is pending. Imaging: I viewed and interpreted images myself Differential Diagnosis: 63-year-old female with depression, rheumatoid arthritis presents from home with 1 day of cough which is productive and fever. Differential diagnosis includes pneumonia, influenza, viral URI. Patient tested positive for influenza A. I will treat her with Tamiflu. I have provided prophylaxis for her . - Data Points Laboratory Results: 12/12/18 02:00 Nasal Influenza A PCR FLU A DETECTED H (NEGATIVE) Nasal Influenza B PCR NEGATIVE FOR FLU B (NEGATIVE) RSV (PCR) NEGATIVE FOR RSV (NEGATIVE) Departure - Departure Disposition: Home, Routine, Self-Care Clinical Impression: Influenza A Condition: Good Instructions: Influenza (ED) Additional Instructions: Please follow-up with your primary care doctor in 1-2 days unless your feeling completely better. Referrals: Obey Moya MD [Primary Care Provider] - As per Instructions Prescriptions: Oseltamivir Phosphate [Tamiflu 75 mg (*)] 75 mg PO BID 5 Days cap
[2018-12-12] MEDS ORDERED: OSELTAMIVIR PHOSPHATE 75 MG CAP PO ONE (03:02)
[2018-12-12 03:23] VITALS: BP 136/91
== END 2018-12-12 03:25 | disposition home or self-care (01) ==
DX: J10.1 Influenza due to other identified influenza virus with other respiratory manifestations (principal)